=== PATIENT | male | born 1945 | race Caucasian/White ===

== ENCOUNTER → 2023-06-01 09:37 | Outpatient (REF) | payer MEDICARE, BC, SELFPAY ==
[2023-06-01 10:42] LABS: % Basophils 1.6 % (0-2); % Eosinophils 8.9 % (0-6); % Immature Granulocytes 0.1 % (0-0.5); % Lymphocytes 30.8 % (20.5-51.1); % Monocytes 11.8 % (1.7-9.3); % Neutrophils 46.8 % (42.2-75.2); Absolute Basophils 0.1 10^3/uL (0-0.2); Absolute Eosinophils 0.7 10^3/uL (0-0.7); Absolute Lymphocytes 2.5 10^3/uL (1.2-3.4); Absolute Neutrophils 3.8 10^3/uL (1.4-6.5); Hemoglobin 13.5 g/dL (13.0-18.0); Mean Corp Hgb Conc. 32.9 g/dL (33.0-37.0); Mean Corpuscular Hgb 30.5 pg (27.0-31.0); Mean Corpuscular Volume 92.8 fL (80.0-94.0); Mean Platelet Volume 9.7 fL (7.4-10.4); Nucleated Red Blood Cells % 0 % (-); Platelet Count 436 10^3/uL (130-400); Red Blood Cell Count 4.42 10^6/uL (4.70-6.10); White Blood Cell Count 8.1 10^3/uL (4.8-10.8)
[2023-06-01 10:43] LABS: Urine Albumin Negative (Neg - Trace); Urine Bilirubin Negative (Negative); Urine Character Clear (Clear); Urine Color Yellow; Urine Glucose Negative (Negative); Urine Ketone Negative (Negative); Urine Leukocyte Negative (Negative); Urine Nitrite Negative (Negative); Urine Occult Blood Negative (Negative); Urine Urobilinogen Negative (Neg - 1+)
[2023-06-01 11:10] LABS: ALT (SGPT) 17 U/L (0-50); AST (SGOT) 26 U/L (17-59); Alkaline Phosphatase 105 U/L (38-126); Blood Urea Nitrogen 19 mg/dl (9-20); Calcium 9.3 mg/dl (8.4-10.2); Carbon Dioxide 27 mmol/L (22-30); Chloride 107 mmol/L (98-107); Glucose 91 mg/dl (70-99); HDL Cholesterol 68 mg/dl; LDL Cholesterol, Calculated 126 mg/dl; Potassium 5.7 mmol/L (3.5-5.1); Sodium 138 mmol/L (135-145); Total Bilirubin 0.7 mg/dl (0.2-1.3); Total Cholesterol 214 mg/dl (50-199); Total Protein 7.1 g/dl (6.3-8.2); Triglyceride 100 mg/dl (10-149); Very Low Density Lipoprotein 20 mg/dl (0-30); eGFR 57.29
[2023-06-01 11:44] LABS: PSA, Total - Screen 1.48 ng/ml (0.0-4.0); TSH Reflex To Free T4 1.81 uIU/ml (0.47-4.68)
== END ==
LOC: REG 09:37
PROVIDERS: ATTENDING PHYSICIAN Physician Assistant
DX: I73.9 Peripheral vascular disease, unspecified (principal); E83.51 Hypocalcemia; I25.2 Old myocardial infarction; Z87.891 Personal history of nicotine dependence; Z12.5 Encounter for screening for malignant neoplasm of prostate
CPT/HCPCS: 36415; 80053; 80061; 81003; 84443; 85025; G0103

== ENCOUNTER → 2023-06-15 11:02 | Outpatient (REF) | payer MEDICARE, BC, SELFPAY | LOC: HWRAD 11:02 | PROVIDERS: ATTENDING PHYSICIAN Physician Assistant | DX: Z87.891 Personal history of nicotine dependence (principal) | CPT/HCPCS: 71271 ==

== ENCOUNTER → 2023-10-19 14:53 | Outpatient (REF) | payer MEDICARE, BC, SELFPAY ==
[2023-10-20 19:22] LABS: Urine Albumin Negative (Neg - Trace); Urine Bilirubin Negative (Negative); Urine Character Clear (Clear); Urine Color Yellow; Urine Glucose Negative (Negative); Urine Ketone Negative (Negative); Urine Leukocyte Negative (Negative); Urine Nitrite Negative (Negative); Urine Occult Blood Negative (Negative); Urine Specific Gravity 1.015 (<1.030); Urine Urobilinogen Negative (Neg - 1+)
== END ==
LOC: CLAB 14:53
PROVIDERS: ATTENDING PHYSICIAN Specialist
DX: C67.9 Malignant neoplasm of bladder, unspecified (principal)
CPT/HCPCS: 81003

== ENCOUNTER 2023-12-09 06:18 | Day surgery (SDC) | payer MEDICARE, BC, SELFPAY ==
--- NOTE | 2023-12-07 10:20 | PTCARENOTE ---
Abn K+ 5.7, Syeda at Dr. Orozco office notified.
--- NOTE | 2023-12-07 14:27 | PTCARENOTE ---
[facility] labs, Dr. Owens with Anesthesia notified, no further actions requested.
[2023-12-09] VITALS (13 sets, daily range): BP systolic 121–140; BP diastolic 73–85; BMI 24.0
[2023-12-09] MEDS: CYSVIEW KIT 100 MG INTRAVES (08:09)
[2023-12-09] MEDS: NORMOSOL-R 1000 IV (08:18)
[2023-12-09] MEDS: TYLENOL 1000 MG PO (08:35)
[2023-12-09] MEDS: SYRINGE NON-PUMP 50 ML IRRIG ×2 (10:27→10:28)
[2023-12-09] MEDS: SYRINGE NON-PUMP 50 MG IRRIG ×2 (10:27→10:28)
[2023-12-09] MEDS: VALIUM INJECTION 2.5 MG IV (10:43)
== END 2023-12-09 12:59 | disposition home or self-care (01) ==
LOC: SDS 06:18
PROVIDERS: ATTENDING PHYSICIAN Specialist; FAMILY PHYSICIAN Physician Assistant
DX: C67.8 Malignant neoplasm of overlapping sites of bladder (principal); Z85.51 Personal history of malignant neoplasm of bladder
CPT/HCPCS: 52332; 51720; 52224; 88307; 74420; 76000; A4300; A9589; C1758; C2617; J0153; J9201

== ENCOUNTER 2023-12-14 02:06 | Inpatient (IN) | payer MEDICARE, BC, SELFPAY ==
[2023-12-13 19:05] VITALS: BP 142/80
[2023-12-13 21:00] VITALS: BP 148/90
[2023-12-13] MEDS: ELIQUIS 5 MG PO (21:18)
[2023-12-13 21:26] VITALS: BMI 23.4
--- NOTE | 2023-12-13 21:35 | ED.GENMED ---
History of Present Illness
<Nayan Mazariegos PA-C - Last Filed: 12/14/23 12:10>
General
Chief Complaint: Extremity Pain (non-traumatic)
Time Seen by Provider: 12/13/23 21:06
History of Present Illness
History of Present Illness:
78-year-old male with history of peripheral arterial disease status post femoral-femoral bypass presents to the emergency department for evaluation of t with right-thigh claudication symptoms that developed today. Symptoms are comparable to his
past arterial occlusion symptoms. He has been maintained on Eliquis for quite some time however due to the recent urologic surgery he was advised to hold Eliquis for a total of 7 days. Eliquis last dose of caution. Noticed today while ambulating
with any insignificant right thigh discomfort. He has very minimal to no pain at rest.
Past History
<Nayan Mazariegos PA-C - Last Filed: 12/14/23 12:10>
Past History
ED Past Medical History: None
ED Past Surgical History: Tonsilectomy and Other (Hernia repair)
Social History
Tobacco: Smoker
Drug: None
Personal: Single
Employment: Retired
Family History
Family History: Other (No significant)
Review of Systems
<Nayan Mazariegos PA-C - Last Filed: 12/14/23 12:10>
Review of Systems
Allergies reviewed?: Yes
All Other Systems: ROS reviewed and negative except as documented in HPI and ROS
Phy Exam
<Nayan Mazariegos PA-C - Last Filed: 12/14/23 12:10>
Physical Exam
Physical Exam:
GEN: Well appearing, NAD, WDWN
HEENT: Oral mucosa moist, no scleral icterus
Cardiac: Regular rate
Lung: No respiratory distress, no tachypnea
MSK: No gross deformity or injuries. No right lower extremity edema. Right popliteal, DP, and PT pulses are strong by Doppler
Skin: Good color, no pallor or jaundice, no rashes
Neuro: AO x3, moves all extremities freely
Psych: Calm, cooperative
Course
<Nayan Mazariegos PA-C - Last Filed: 12/14/23 12:10>
Orders/Labs/Results
Orders:
Orders
12/13/23 21:13
Apixaban [Eliquis] 5 mg PO NOW STA
12/13/23 21:34
CT Abd Aorta Angio W/ Run Off Urgent
Comment:
Reason For Exam: RLE claudication/rest pain
12/13/23 22:27
Complete Blood Count/No Diff Urgent
Comprehensive Metabolic Panel Urgent
12/14/23 01:19
Vascular Surgery Consult Urgent
Consulting Provider: Daniel Baker III
Was physician already notified: Yes
12/14/23 01:52
Admit/Transfer Patient As Directed
Co-Sign Provider:
Level of Care: Inpatient admission
Assign to:: Telemetry
Physician / Group: francesca
Diagnosis: acute right leg stent and bypass occlusion
Reason for Telemetry: Arrhythmia
Other Reason for Telemetry: HX SVT
Date to Stop Telemetry: 12/17/23
Time to Stop Telemetry: 11:00
Reason for Hospitalization: right leg stent and bypass occlusion
Expected length of stay greater than two midnights?: Yes
ELOS- Estimated Length of Stay in days: 3
I certify the patient meets the requirements for IP care: Yes
12/14/23 01:53
Code Status As Directed
Resuscitation Status: Full Code
12/14/23 03:12
Acetaminophen [Tylenol] 650 mg PO Q4HPRN PRN
Bisacodyl [Dulcolax] 10 mg RECTAL [id number] PRN
Docusate W/Senna [Senokot-S] 1 tablet PO BIDPRN PRN
Polyethylene Glycol Powder [Miralax] 17 grams PO DAILYPRN PRN
12/14/23 03:12
Activity As Directed
Activity Level: With Assistance
Vital Signs As Directed
Frequency: Per unit guidelines
12/14/23 06:55
Basic Metabolic Panel IN AM
Complete Blood Count/No Diff IN AM
Prothrombin Time IN AM
12/14/23 08:00
Apixaban [Eliquis] 5 mg PO BID
12/17/23 11:00
DC Protocol for Telemetry ONCE
Abnormal Lab Results
12/13/23
22:27
RBC 3.91 L 10^6/uL
(4.70-6.10)
Hgb 12.1 L g/dL
(13.0-18.0)
Hct 33.9 L %
(39.0-52.0)
Sodium 127 L mmol/L
(135-145)
Chloride 97 L mmol/L
(98-107)
BUN 26 H mg/dl
(9-20)
Total Bilirubin 1.5 H mg/dl
(0.2-1.3)
12/13/23 22:27
12/13/23 22:27
Vital Signs
Initial and Last Documented VS:
Initial Vital Signs
Temp Pulse Resp BP Pulse Ox
97.8 F 88 24 142/80 96
12/13/23 19:05 12/13/23 19:05 12/13/23 19:05 12/13/23 19:05 12/13/23 19:05
Last Documented Vital Signs
Temp Pulse Resp BP Pulse Ox
98.2 F 103 14 126/81 97
12/14/23 11:20 12/14/23 11:20 12/14/23 11:20 12/14/23 11:20 12/14/23 11:20
<Lloyd Gandhi MD - Last Filed: 12/14/23 02:49>
Orders/Labs/Results
Orders:
Orders
12/13/23 21:13
Apixaban [Eliquis] 5 mg PO NOW STA
12/13/23 21:34
CT Abd Aorta Angio W/ Run Off Urgent
Comment:
Reason For Exam: RLE claudication/rest pain
12/13/23 22:27
Complete Blood Count/No Diff Urgent
Comprehensive Metabolic Panel Urgent
12/14/23 01:19
Vascular Surgery Consult Urgent
Consulting Provider: Daniel Baker III
Was physician already notified: Yes
12/14/23 01:52
Admit/Transfer Patient As Directed
Co-Sign Provider:
Level of Care: Inpatient admission
Assign to:: Telemetry
Physician / Group: beny
Diagnosis: acute right leg stent and bypass occlusion
Reason for Telemetry: Arrhythmia
Other Reason for Telemetry: HX SVT
Date to Stop Telemetry: 12/17/23
Time to Stop Telemetry: 11:00
Reason for Hospitalization: right leg stent and bypass occlusion
Expected length of stay greater than two midnights?: Yes
ELOS- Estimated Length of Stay in days: 3
I certify the patient meets the requirements for IP care: Yes
12/14/23 01:53
Code Status As Directed
Resuscitation Status: Full Code
12/14/23 03:12
Acetaminophen [Tylenol] 650 mg PO Q4HPRN PRN
Bisacodyl [Dulcolax] 10 mg RECTAL [id number] PRN
Docusate W/Senna [Senokot-S] 1 tablet PO BIDPRN PRN
Polyethylene Glycol Powder [Miralax] 17 grams PO DAILYPRN PRN
12/14/23 03:12
Activity As Directed
Activity Level: With Assistance
Vital Signs As Directed
Frequency: Per unit guidelines
12/14/23 06:55
Basic Metabolic Panel IN AM
Complete Blood Count/No Diff IN AM
Prothrombin Time IN AM
12/14/23 08:00
Apixaban [Eliquis] 5 mg PO BID
12/17/23 11:00
DC Protocol for Telemetry ONCE
Abnormal Lab Results
12/13/23
22:27
RBC 3.91 L 10^6/uL
(4.70-6.10)
Hgb 12.1 L g/dL
(13.0-18.0)
Hct 33.9 L %
(39.0-52.0)
Sodium 127 L mmol/L
(135-145)
Chloride 97 L mmol/L
(98-107)
BUN 26 H mg/dl
(9-20)
Total Bilirubin 1.5 H mg/dl
(0.2-1.3)
12/13/23 22:27
12/13/23 22:27
Vital Signs
Initial and Last Documented VS:
Initial Vital Signs
Temp Pulse Resp BP Pulse Ox
97.8 F 88 24 142/80 96
12/13/23 19:05 12/13/23 19:05 12/13/23 19:05 12/13/23 19:05 12/13/23 19:05
Last Documented Vital Signs
Temp Pulse Resp BP Pulse Ox
98.2 F 103 14 126/81 97
12/14/23 11:20 12/14/23 11:20 12/14/23 11:20 12/14/23 11:20 12/14/23 11:20
<Nayan Mazariegos PA-C - Last Filed: 12/14/23 12:10>
MDM/Problems Addressed
MDM/Problems Addressed:
Concern for limb ischemia in the setting of fem-fem bypass and prolonged period of withheld OAC due to urologic surgery. Will sign out to attending Dr Gandhi pending CTA runoff. Vascular is aware of the pt's presentation
<Nayan Mazariegos PA-C - Last Filed: 12/14/23 12:10>
*Critical Care Note
Total Time (30-74mins, 75-104mins- exclusive of procedures): Not Applicable
ED Attending Note
<Nayan Mazariegos PA-C - Last Filed: 12/14/23 12:10>
-
Portions of this chart may have been created with voice recognition software.� Occasional wrong word or��sound alike� substitutions may have occurred due to the inherent limitations of voice recognition software.
<Lloyd Gandhi MD - Last Filed: 12/14/23 02:49>
ED Attending Note
Patient seen and examined by attending physician: Yes
ED Attending Note:
I have seen and evaluated the patient with a [id number] encounter. I have spoken to the advance practicer provider and involved in the medical history, the physical exam, medical decision making.
Evaluation and management service: agree unless noted differently below.
Results interpretation: agree unless noted differently below.
Focused HPI: 78-year-old male with history of A-fib, DVT, PVD status post bypass who presents to the emergency room with paresthesias and pain in the right leg. Patient notably had cystoscopy on and bladder mass resection. He was told to
hold Eliquis starting last Wednesday (1 week ago) and to resume it 3 days after the surgery (today). Total time off Eliquis 1 week. He says that over the weekend he noticed that he was having some paresthesias in the right leg and then began to have
some burning thigh pain with exertion yesterday. Similar symptoms he has had from claudication in the past. Resumed his Eliquis but symptoms persisted and so he came to the ER to be evaluated.
Physical exam: Awake alert not in distress. Vital signs are normal. Both legs are warm to the touch and he has good capillary refill distally in both legs. He has a strong palpable DP and PT pulse left lower extremity. Right lower extremity no
pulse by palpation but present by Doppler DP and PT. He has no edema in the lower extremities.
Medical Decision Makin-year-old male presents with claudication symptoms in the right leg in the setting of recent withholding of NOAC due to a bladder surgery. Vitals normal. Exam as above. PA discussed with vascular surgery will plan to
send for a CT angio to evaluate for occlusion of bypass.
CTA shows occlusion of bypass graft as well as prior stent. There is reconstitution of flow distally. Discussed with vascular surgery will plan to admit to hospitalist service they will evaluate patient in the morning. He was given his nighttime
dose of Eliquis here, this is sufficient for now and continue Eliquis per vascular surgery. Case discussed with hospitalist.
Discharge Plan
Departure
Patient Disposition: Admit
Date of Disposition: 12/14/23
Time of Disposition: 01:19
Admit to doctor: Francesca
Presentation/result/management discussed w/ accepting MD/DO: Hospitalist
Discharge Problem:
Occlusion of bypass graft
Interventions
Interventions:
*Risk Screen - Suicide Last Done: 12/14/23 03:30
*General Assessment Last Done: 12/13/23 21:11
*Neglect/Abuse Screening Last Done: 12/13/23 19:05
ED- Fall Risk Assessment Last Done: 12/13/23 21:19
*ED COVID-19 Vaccine History Last Done: 12/14/23 03:30
*Nursing Disposition Last Done: 12/14/23 03:01
ED-Skin Assessment Last Done: 12/13/23 21:19
ED-Peripheral Vascular Assessment Last Done: 12/13/23 21:19
ED-Musculoskeletal Assessment Last Done: 12/13/23 21:19
Discharge Date and Time
Discharge Date/Time: 12/14/23 03:01
[2023-12-13 22:00] VITALS: BP 137/79
[2023-12-13 22:39] LABS: Hematocrit 33.9 % (39.0-52.0); Hemoglobin 12.1 g/dL (13.0-18.0); Mean Corp Hgb Conc. 35.7 g/dL (33.0-37.0); Mean Corpuscular Hgb 30.9 pg (27.0-31.0); Mean Corpuscular Volume 86.7 fL (80.0-94.0); Mean Platelet Volume 9.3 fL (7.4-10.4); Platelet Count 265 10^3/uL (130-400); Red Blood Cell Count 3.91 10^6/uL (4.70-6.10); Red Cell Dist. Width 13.6 % (11.5-14.5); White Blood Cell Count 7.8 10^3/uL (4.8-10.8)
[2023-12-13 23:12] LABS: ALT (SGPT) 21 U/L (0-50); AST (SGOT) 31 U/L (17-59); Alkaline Phosphatase 78 U/L (38-126); Blood Urea Nitrogen 26 mg/dl (9-20); Calcium 9.2 mg/dl (8.4-10.2); Carbon Dioxide 23 mmol/L (22-30); Chloride 97 mmol/L (98-107); Estimated Creatinine Clearance 59 ml/min; Glucose 97 mg/dl (70-99); Potassium 4.3 mmol/L (3.5-5.1); Sodium 127 mmol/L (135-145); Total Bilirubin 1.5 mg/dl (0.2-1.3); Total Protein 6.6 g/dl (6.3-8.2); eGFR > 60.00
[2023-12-14] VITALS (8 sets, daily range): BP systolic 107–149; BP diastolic 65–85; BMI 23.4
--- NOTE | 2023-12-14 01:42 | HPS.HSE ---
Addendum entered and electronically signed by Qamar Gannon MD 12/14/23 12:44:
Correction of typo
Urologist clear to resume Eliquis as of 12/13/23 but he started on <del>12/08/23</del> <del>night</del> 12/12/23 night
Original Note:
Family Physician
-
Family Physician: Patsy Kate
Chief Complaint
-
right thigh discomfort while walking
History of Present Illness
78M HX PAD, stented Rt Ext illiac artery, recently holding chr eliquis for 7 days recent urological procedure including Recent Left ureteral stent placement and transurethral resection of bladder tumor on trigone and resection of blue light
positive tissue on bladder dome for recurrent bladder carcinoma as of 12/08/23 seen at ER for evaluation of right-thigh claudication symptoms
- Reports while ambulating with any insignificant right thigh discomfort.
- very minimal to no pain at rest.
CTA POS for right leg stent and bypass occlusion
@ ER : resume onse dose of Eliquis 5 mg
Medical History
Past Medical History
Past Medical History: Reports Other
Additional Past Medical History:
Recurrent bladder carcinoma.
Peripheral vascular disease.
Coronary artery disease.
Supraventricular tachycardia.
Tobacco abuse.
Past Surgical History: Reports Other
Additional Past Surgical History:
Recent Left ureteral stent placement.
Transurethral resection of bladder tumor on trigone and resection of blue light positive tissue on bladder dome.
Multiple TURBTs.
Fibular fracture repair.
Right inguinal hernia repair.
Tonsillectomy.
Right femoral artery endarterectomy and popliteal artery and tibial thrombectomy.
Right lower extremity thrombectomy.
Left hip replacement.
Social History
Tobacco: Former Smoker
Family History
Family History: Other (PAD )
Allergies / Home Medications
Allergies reflects when Allergies were last updated in [facility].
Home Medications with original date entered in [facility]
Allergy/Medication List:
Allergies
Allergy/AdvReac Type Severity Reaction Status Date / Time
Sulfa (Sulfonamide Allergy Hives Verified 12/13/23 19:08
Antibiotics)
Home Medications
aspirin 81 mg tablet,delayed release 81 mg PO DAILY Blood clot prevention/tx ##0 08/18/21
apixaban 5 mg tablet (Eliquis) 5 mg PO BID #120 tabs 07/10/22
Medical Marijuana 1 dose inhalation HS 12/07/23
acetaminophen 325 mg capsule (Tylenol) 325 mg PO ONCE PRN pain 12/07/23
phenazopyridine 95 mg tablet 1 mg PO BID 12/07/23
tobramycin 0.3 %-dexamethasone 0.05 % eye drops,suspension (Tobradex ST) 1 drp ophthalmic (eye) Q6H 12/07/23
Review of Systems
-
Constitutional: Reports No Symptoms
EENT: Reports No Symptoms
Respiratory: Reports No Symptoms
Cardiac: Reports No Symptoms
Abdomen/GI: Reports No Symptoms
: Reports No Symptoms
Musculoskeletal: Reports See HPI
Skin: Reports No Symptoms
Neurological: Reports No Symptoms
Endocrine: Reports No Symptoms
Hematologic/Lymphatic: Reports No Symptoms
Psych: Reports No Symptoms
Physical Exam
Vital Signs
Vital Signs
Temp Pulse Resp BP Pulse Ox
97.8 F 87 16 129/74 98
12/13/23 19:05 12/14/23 00:32 12/14/23 00:32 12/14/23 00:32 12/14/23 00:32
Physical Exam
General: Well Developed, Well Nourished and No Apparent Distress
HEENT: NormoCephalic, Moist mucous membranes and Atraumatic
Respiratory: Clear
Cardiac: S1/S2 and Regular Rhythm; No Murmur or Rub
GI: Soft, Non Tender, Non Distended and Normal Bowel Sounds; No Organomegaly
Rectal: Deferred by Provider
Musculoskeletal: Other (Right popliteal, DP, and PT pulses are strong by Doppler)
Skin: No Rash
Neuro: Nonfocal/grossly intact
Laboratory Results
-
12/13/23 22:27
12/13/23 22:
Laboratory Results
Total Bilirubin 1.5 mg/dl (0.2-1.3) H 12/13/23 22:
AST 31 U/L (17-59) 12/13/23:
ALT 21 U/L (0-50) 12/13/23 22:
Alkaline Phosphatase 78 U/L (38-126) 12/13/23 22:
Data Reviewed
-
CT Scan: Report Reviewed by me
Lab Data: Labs Reviewed by me
Old Records: Reviewed
Impression/Plan
-
Right leg stent and bypass occlusion while holding Eliquis
HX PAD, Right femoral artery endarterectomy and popliteal artery and tibial thrombectomy.
- resume Eliquis per vascular
- Vascular consulted
POD 5 Left ureteral stent placement and Transurethral resection of bladder tumor on trigone and resection of blue light positive tissue on bladder dome fo recurrent bladder tumor
Multiple TURBTs.
- Observe new onset of hematuria in response to Eliquis
- Urologist clear to resume Eliquis as of 12/13/23 but he started on 12/08/23 night
HX CAD
HX SVT
Pending Rx reconciliation
DVT: Eliquis
Full code
IP TLM
--- NOTE | 2023-12-14 03:20 | PTCARENOTE ---
Pt arrived from ED via stretcher and ambulated to bed. Pt is AAOx3, VSS, w/o complaints of pain. Pt has a Baker that is intact. Pt is resting comfortably w/ call dunn within reach.
[2023-12-14] MEDS: MACROBID 100 MG PO ×2 (08:35→20:43)
[2023-12-14] MEDS: ELIQUIS 5 MG PO ×2 (08:36→20:43)
[2023-12-14] MEDS: XALATAN OPHTHALMIC SOLUTION 1 DROP OPHTH (08:37)
[2023-12-14] MEDS: TOBREX 0.3% EYE DROPS 1 DROP OPHTH ×2 (08:37→20:43)
[2023-12-14 08:43] LABS: INR 1.14; PT 14.4 Sec (11.4-14.6)
[2023-12-14 08:52] LABS: Hematocrit 36.2 % (39.0-52.0); Hemoglobin 12.7 g/dL (13.0-18.0); Mean Corp Hgb Conc. 35.1 g/dL (33.0-37.0); Mean Corpuscular Hgb 31.7 pg (27.0-31.0); Mean Corpuscular Volume 90.3 fL (80.0-94.0); Mean Platelet Volume 9.8 fL (7.4-10.4); Platelet Count 273 10^3/uL (130-400); Red Blood Cell Count 4.01 10^6/uL (4.70-6.10); Red Cell Dist. Width 13.5 % (11.5-14.5); White Blood Cell Count 6.1 10^3/uL (4.8-10.8)
[2023-12-14 09:04] LABS: Blood Urea Nitrogen 23 mg/dl (9-20); Calcium 8.9 mg/dl (8.4-10.2); Carbon Dioxide 24 mmol/L (22-30); Chloride 101 mmol/L (98-107); Estimated Creatinine Clearance 59 ml/min; Glucose 84 mg/dl (70-99); Potassium 4.7 mmol/L (3.5-5.1); Sodium 132 mmol/L (135-145); eGFR > 60.00
--- NOTE | 2023-12-14 09:58 | W.PN.UPDATE ---
Update Note
Progress Note Update
pt well known to me
recurrent bladder ca
underwent large TURBT on - held eliquis 48hrs prior and ask him to hold until wednesday with planned bolaños removal today
had had some intermittent hematuria over the weekend
developed some claudication on wednesday- this was a typical sx of previous graft occlusion and restarted his eliquis
took wednesday and wednesday and this am
presented to ER with increasing clausidcation (no limb ischemia)
ct c/w occlusion
urine clear- bladder appears nl with left stent in position
reviewed with pt
path still pending
keep bolaños until dispo from vasc surgery who i have reached out to
will follow
--- NOTE | 2023-12-14 10:59 | W.PN.UPDATE ---
Update Note
Progress Note Update
Seen and examined independent of overnight physician. States of right leg pain with exertion. Denies pain with rest.
Ct ANGIO
1. Femoral to femoral bypass graft is occluded, new compared to prior study dated 01/04/2023. Right external iliac artery is occluded along its length, with reconstitution of the right common femoral artery. Multiple additional stenoses involving the
right lower extremity, as detailed above. Infrapopliteal disease on the right side.
2. Mild peripheral vascular disease within the left lower extremity as detailed above.
3. Multifocal plaque within the abdominal aorta. 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 Mild aneurysmal dilation of the right proximal common iliac artery and the left distal common iliac artery. Mild
aneurysmal dilation of the right common femoral artery, which may be related to anastomotic flaring of the femoral to femoral bypass graft.
4. Small fluid collection within the anterior soft tissues of the right lower extremity, unchanged compared to prior CTA, likely representing a small seroma.
General: Well Developed, Well Nourished and No Apparent Distress
HEENT: NormoCephalic, Moist mucous membranes and Atraumatic
Respiratory: Clear
Cardiac: S1/S2 and Regular Rhythm; No Murmur or Rub
GI: Soft, Non Tender, Non Distended and Normal Bowel Sounds; No Organomegaly
Rectal: Deferred by Provider
Musculoskeletal: Other (Right popliteal, DP, and PT pulses are strong by Doppler)
Skin: No Rash
Neuro: Nonfocal/grossly intact
Right leg stent and bypass occlusion while holding Eliquis
HX PAD, Right femoral artery endarterectomy and popliteal artery and tibial thrombectomy.
- resume Eliquis per vascular
- CTA as above
- Vascular consulted. NPO in case for thrombectomy. IVF in the interim
POD 5 Left ureteral stent placement and Transurethral resection of bladder tumor on trigone and resection of blue light positive tissue on bladder dome fo recurrent bladder tumor
Multiple TURBTs.
- Observe new onset of hematuria in response to Eliquis
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
- Dr. Orozco following.
Hx of glaucaoma/cataracts
-eye drops ordered
'
Mild hyponatremia
-trend bmp.
HX CAD
HX SVT
DVT: Eliquis
[2023-12-14] MEDS: FLUSH (NSS) 1 FLUSH IV (12:05)
[2023-12-14] MEDS: LR 1000 IV ×2 (12:05→22:40)
--- NOTE | 2023-12-14 12:38 | CON.VAS ---
Consultation
Consultation Request
Performing Provider: Olivia
Reason for Consultation: Right thigh pain
Medical History
-
Chief Complaint: R thigh pain
History of Present Illness:
78-year-old male with extensive vascular surgery history
Prior right lower extremity interventions for acute limb ischemia in 2018 and 2020 including R CFAE and left to right fem-fem bypass, fasciotomies
Thrombectomy of the fem-fem in 06/2022 that thrombosed while holding anticoag for colonoscopy
Now has acutely thrombosed the fem-fem as well as the iliamna right SUPERVISOR HISTOLOGY while holding anticoag for bladder procedure
Presented with RLE symptoms - right thigh claudication
No rest pain currently
CTA reviewed personally. Fem-fem occluded. Right [employer]OR [employer] occluded, aneurysmal at ~24 cm.
The distal common femoral at the femoral bifurcation does reconstitute. The SFA/profunda/popliteal arteries are patent. Tibial runoff is identified through the anterior tibial and posterior tibial arteries.
On physical exam he is well-appearing and in no acute distress
Nonlabored breathing
Doppler signals are identified at the DP and PT in the right leg
Past Medical History
Past Medical History: Other (Recurrent bladder carcinoma, Peripheral vascular disease, Coronary artery disease, Supraventricular tachycardia, Tobacco abuse.)
Past Surgical History: Other (Recent Left ureteral stent placement, Transurethral resection of bladder tumor on trigone and resection of blue light positive tissue on bladder dome, Multiple TURBTs, Fibular fracture repair, Right inguinal hernia
repair, Tonsillectomy, Right femoral artery endarterectomy and popliteal artery and t)
Social History
Tobacco: Former Smoker
Living: With Family
Family History
Family History: Reviewed & Not Pertinent
Allergies / Home Medications
Allergy/AdvReac Type Severity Reaction Status Date / Time
Sulfa (Sulfonamide Allergy Hives Verified 12/13/23 19:08
Antibiotics)
�Medication �Instructions �Recorded �Confirmed �Type
aspirin 81 mg tablet,delayed 81 mg PO DAILY Blood clot 08/18/21 12/14/23 History
release prevention/tx ##0
apixaban 5 mg tablet (Eliquis) 5 mg PO BID #120 tabs 07/10/22 12/14/23 Rx
Medical Marijuana 1 dose inhalation HS Neurological 12/07/23 12/14/23 History
Condition
acetaminophen 325 mg capsule 325 mg PO ONCE PRN pain 12/07/23 12/14/23 History
(Tylenol)
phenazopyridine 95 mg tablet 1 mg PO BID urinary pain 12/07/23 12/14/23 History
tobramycin 0.3 %-dexamethasone 1 drp ophthalmic (eye) Q6H Eye 12/07/23 12/14/23 History
0.05 % eye drops,suspension Condition
(Tobradex ST)
Review of Systems
-
History Source: Patient
All other systems: Negative unless noted
Physical Exam
Vital Signs
Temp Pulse Resp BP Pulse Ox
97.7 F 83 18 140/81 96
12/15/23 11:14 12/15/23 11:14 12/15/23 11:14 12/15/23 11:14 12/15/23 11:14
Lab Results
12/15/23 08:26
12/15/23 08:26
Physical Exam
General: No Apparent Distress
HEENT: Normocephalic and Atraumatic
Respiratory: Non Labored Respirations
Cardiac: Negative JVD
Breast: Deferred by me
GI: Soft and Non Tender
Musculoskeletal: No Clubbing and No Cyanosis
Skin: Warm
Neuro: Awake, Alert and Oriented
Psych: Calm
Pulses: Right Dorsalis Pedis: Doppler and Right Posterior Tibial: Doppler
Assessment / Plan
-
I had a long discussion with Mr. Aden. I discussed potential treatment options and reviewed his vascular surgery course to date, highlighting the challenges he has had with cessation of anticoagulation. 1 option is to continue systemic
anticoagulation and avoid surgical intervention given that he does have reconstituted runoff of his lower extremity. The advantage with this approach would be to avoid additional surgical intervention and the associated complications including but
not limited to bleeding, NH, distal embolization, wound healing complications, infection, recurrent limb ischemia, limb loss and the need for additional surgery. He is currently only claudicating and has no rest pain. Another option would be to
redo the fem-fem bypass using the superficial femoral arteries bilaterally. The advantage of this approach would be to perform the bypass in [place] and avoid potential reoperative groin surgery on both sides. The downside of another
fem-fem bypass and the potential for additional thrombotic complications as well as the potential complications listed above was discussed with him in detail. Thrombectomy of the existing fem-fem bypass along with thrombectomy of the right [employer] is
another options but would require reoperative right groin surgery to effectively remove the thrombus due to the aneurysmal nature of the right common femoral artery and the amount of associated thrombus present. I would like to avoid this approach
and explained that to him.
He would like some additional time to consider his options. For the time being continue anticoagulation and we will follow along. Please call with any clinical changes or concerns.
Data Reviewed
-
CT Scan: Discussed with Patient
Labs: Labs Reviewed by me
--- NOTE | 2023-12-14 13:26 | W.PN.UPDATE ---
Update Note
Progress Note Update
78-year-old male with extensive vascular surgery history
Prior right lower extremity interventions for acute limb ischemia in 2019 and 2020 including R CFAE and left to right fem-fem bypass, fasciotomies
Thrombectomy of the fem-fem in 06/2022 that thrombosed while holding anticoag for colonoscopy
Now has acutely thrombosed the fem-fem as well as the [place] right SALES REP while holding anticoag for bladder procedure
Presented with RLE symptoms - right thigh claudication
No rest pain currently
CTA reviewed personally. Fem-fem occluded. 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
The distal common femoral at the femoral bifurcation does reconstitute. The SFA/profunda/popliteal arteries are patent. Tibial runoff is identified through the anterior tibial and posterior tibial arteries.
On physical exam he is well-appearing and in no acute distress
Nonlabored breathing
Doppler signals are identified at the DP and PT in the right leg
I had a long discussion with Mr. Aden. I discussed potential treatment options and reviewed his vascular surgery course to date, highlighting the challenges he has had with cessation of anticoagulation. 1 option is to continue systemic
anticoagulation and avoid surgical intervention given that he does have reconstituted runoff of his lower extremity. The advantage with this approach would be to avoid additional surgical intervention and the associated complications including but
not limited to bleeding, WA, distal embolization, wound healing complications, infection, recurrent limb ischemia, limb loss and the need for additional surgery. He is currently only claudicating and has no rest pain. Another option would be to
redo the fem-fem bypass using the superficial femoral arteries bilaterally. The advantage of this approach would be to perform the bypass in [place] and avoid potential reoperative groin surgery on both sides. The downside of another
fem-fem bypass and the potential for additional thrombotic complications as well as the potential complications listed above was discussed with him in detail. Thrombectomy of the existing fem-fem bypass along with thrombectomy of the right SALES REP is
another options but would require reoperative right groin surgery to effectively remove the thrombus due to the aneurysmal nature of the right common femoral artery and the amount of associated thrombus present. I would like to avoid this approach
and explained that to him.
He would like some additional time to consider his options. For the time being continue anticoagulation and we will follow along. Please call with any clinical changes or concerns.
Daniel Baker III, MD
[facility]
[phone] (cell)
--- NOTE | 2023-12-14 16:13 | PTCARENOTE ---
Pt AAO x3, GLOVER well, OOB ambulator yin room/clark, jovita well, no c/o weakness/dizziness. VSS. Telemetry:NSR with PVC's. On room air- pulseox 96%, no SOB noted. Abd soft, rounded, jovita PO well. Baker P/I mod amts clear jose juan urine, no hematuria
noted. IV RL @ 80 ml/hr infusing via Rt AC site without sx of infiltration. Resting in bed at present, no c/o. Will continue to monitor.
--- NOTE | 2023-12-14 17:16 | CM ---
Alert awake oriented patient who lives with SO Iwona who lives in a 2 story home with 1 step to enter and 12 steps to bed and bathroom. He is independent in driving and in all activities of daily living.He was offered VN he declined need.He has a
Baker.
VN hx for wd vac / No SNF history
Pharmacy [facility]
PCP DR Kate
PLAN Unsure on dc plan
--- NOTE | 2023-12-14 17:45 | PTCARENOTE ---
Called to room by pt c/o 'felt a little dizzy' after drinking 2 cups of coffee with dinner. Noted run of SVT to 140's on telemetry; monitor currently showing NSR with PVC's; HR 85. Pt states he 'feels much better now'. Will continue to monitor.
Dr. Jarvis notified.
--- NOTE | 2023-12-15 03:30 | DOWNTIME ---
There was a [employer] Downtime on 12/15/2023 from 0100 to 12/15/2023 at 0252. Downtime documentation of patient's care, including medication administrations, has been reconciled in the electronic record per guidelines. Refer to the
patient's paper chart under the miscellaneous tab to see printed paper medication records and downtime forms.
[2023-12-15 03:45] VITALS: BP 111/65
[2023-12-15 07:35] VITALS: BP 112/73
--- NOTE | 2023-12-15 08:09 | W.PN.UPDATE ---
Update Note
Progress Note Update
pt stable overnight
urine clear
reviewed with vasc surgery yesterday- plan for med management of pvd at this point
bladder path shows high grade noninvasive dz
reviewed with pt
after bolaños removal if urinating cleared for discharge
pt should call my office abhi to schedule stent removal and discussion of options going forward
[2023-12-15] MEDS: TOBREX 0.3% EYE DROPS 1 DROP OPHTH (09:07)
[2023-12-15] MEDS: ELIQUIS 5 MG PO (09:07)
[2023-12-15] MEDS: MACROBID 100 MG PO (09:07)
[2023-12-15] MEDS: XALATAN OPHTHALMIC SOLUTION 1 DROP OPHTH (09:08)
[2023-12-15 09:54] LABS: % Basophils 1.2 % (0-2); % Eosinophils 5.5 % (0-6); % Immature Granulocytes 0.3 % (0-0.5); % Monocytes 3.3 % (1.7-9.3); % Neutrophils 58.7 % (42.2-75.2); Absolute Basophils 0.1 10^3/uL (0-0.2); Absolute Eosinophils 0.3 10^3/uL (0-0.7); Absolute Lymphocytes 1.8 10^3/uL (1.2-3.4); Absolute Monocytes 0.2 10^3/uL (0.1-0.6); Absolute Neutrophils 3.4 10^3/uL (1.4-6.5); Hematocrit 36.7 % (39.0-52.0); Hemoglobin 12.7 g/dL (13.0-18.0); Mean Corp Hgb Conc. 34.6 g/dL (33.0-37.0); Mean Corpuscular Hgb 31.5 pg (27.0-31.0); Mean Corpuscular Volume 91.1 fL (80.0-94.0); Mean Platelet Volume 9.7 fL (7.4-10.4); Nucleated Red Blood Cells % 0 % (-); Platelet Count 249 10^3/uL (130-400); Red Blood Cell Count 4.03 10^6/uL (4.70-6.10); Red Cell Dist. Width 13.4 % (11.5-14.5); White Blood Cell Count 5.8 10^3/uL (4.8-10.8)
[2023-12-15 10:23] LABS: Blood Urea Nitrogen 23 mg/dl (9-20); Calcium 8.8 mg/dl (8.4-10.2); Carbon Dioxide 26 mmol/L (22-30); Chloride 102 mmol/L (98-107); Estimated Creatinine Clearance 59 ml/min; Glucose 86 mg/dl (70-99); Potassium 4.5 mmol/L (3.5-5.1); Sodium 135 mmol/L (135-145); eGFR > 60.00
[2023-12-15 11:14] VITALS: BP 140/81
--- NOTE | 2023-12-15 11:20 | CM ---
Patient seen bedside.
Baker cath discontinued this am.
Per patient able to void in urinal.
IMM reviewed.
Plan:home no needs anticipated.
sister will transport.
--- NOTE | 2023-12-15 11:29 | PTOTSP ---
Received order for PT and reviewed chart. Attempted to see pt for initial evaluation but pt not in room. RN in room and stated pt is ambulating independently in hallway without an assistive device and does not need PT services. Observed pt
ambulating multiple laps in hallway without an assistive device. PT will sign off.
--- NOTE | 2023-12-15 11:44 | PTCARENOTE ---
Patient voided 350ml @ 11:00 post bolaños removal.
--- NOTE | 2023-12-15 14:00 | W.PN.HOSP.TC ---
Today's Communication/Plan
-
Discharged with outpatient vascular surgery and urology follow-up
Assessment / Plan
Assessment / Plan
#Right leg stent and bypass occlusion -- while holding Eliquis for urologic procedure
#PAD s/p right femoral endarterectomy, popliteal artery and tibial thrombectomy
-Presented with symptoms of worsening claudication, no signs of critical limb ischemia
-Resumed back on Eliquis, no signs of worsening since admission, skin is warm and appropriately moist
-Patient spoke with vascular surgery and has elected for conservative management
-Will follow-up outpatient with vascular surgery for further treatment consideration
#POD 5 Left ureteral stent placement and Transurethral resection of bladder tumor on trigone and resection of blue light positive tissue on bladder dome fo recurrent bladder tumor
#S/P Multiple TURBTs.
-Urologist clear to resume Eliquis as of 12/13/23 but he started on 12/08/23 night
-Repeat bladder pathology shows high-grade noninvasive disease
HX CAD
HX SVT
DVT: Eliquis
Full code
Anticipated Discharge: Today
Subjective/Interval History
-
Date of Service: December 15, 2023
Seen and examined while sitting in the chair. No acute events.
Patient has decided to elect for conservative management concerning his occlusive PAD. Will follow-up as an outpatient with vascular surgery. As of now he denies any acute complaints states he is ready to go home.
Objective Data
-
Labs:
Laboratory Results
12/15/23
08:26
WBC 5.8
Hgb 12.7 L
Hct 36.7 L
Plt Count 249
Sodium 135
Potassium 4.5
Chloride 102
Carbon Dioxide 26
BUN 23 H
Creatinine 1.1
Glucose 86
Calcium 8.8
Vital Signs:
Vital Signs
Temp Pulse Resp BP Pulse Ox
97.7 F 83 18 140/81 96
12/15/23 11:14 12/15/23 11:14 12/15/23 11:14 12/15/23 11:14 12/15/23 11:14
I&O
12/14/23 12/15/23 12/16/23
06:59 06:59 06:59
Intake Total 240 / 240 1620 / 1620
Output Total 1025 / 1025 1750 / 1750
Balance -785 / -785 -130 / -130
Review of Systems
-
History Source: Patient
All other systems: Reviewed and negative
Physical Exam
-
General: Well Nourished, No Apparent Distress and Comfortable
HEENT: Normocephalic, Atraumatic and Moist Mucous Membranes
Respiratory: Clear to Auscultation and Non Labored Respirations
Cardiac: Regular Rhythm and S1/S2; Negative Murmur, Rub or Gallop
GI: Soft, Nontender, Nondistended and Normal Bowel Sounds
Musculoskeletal: No Clubbing, No Cyanosis and No Edema
Skin: Warm, Dry and Other (No signs of CLI to right lower extremity, surgical scar present over right medial calf); Negative Rash
Neuro: AO x 3, Nonfocal/Grossly Intact and Central Nerve's Intact
Data Reviewed
-
Labs: Labs Reviewed by me
--- NOTE | 2023-12-15 14:13 | W.DCSUMMARY ---
Discharge Summary
Discharge Data
Date of Admission: 12/14/23
Date of Discharge: 12/15/23
-
Pending Results: No
Hospital Course
Presented with worsening claudication after holding Eliquis for urological procedure stent placement. Found to have occlusion of previous arterial graft/stent, resumed on Eliquis without any worsening or new development of critical limb ischemia.
Was evaluated by vascular surgery who recommended conservative versus invasive management. The patient elected for conservative therapy, scheduled to follow-up in the office with vascular surgery following discharge for further consideration of
surgical procedures. Baker catheter removed following urological procedure. On dose of Macrobid prophylactically due to instrumentation. Discharge with order to complete 5-day course. Should follow-up with urologist in office within 2 to 3 days
to discuss removal of ureteral stent
Discharge Plan
-
Patient Disposition: Home (Routine Discharge)
Discharge Diagnosis/Procedures: PAD with graft/stent occlusion
Status post urologic procedure
Condition: Good
Diet: No restrictions
Activity: As tolerated
Driving Restrictions: As prior to admission
Bathing Restrictions: None
Blood Work: N/A
Others Tests: N/A
Specialty Instructions: Weigh Daily- Call MD for wt gain/loss 3 lbs overnight/5 lbs in 1 week
Activity Restrictions/Additional Instructions:
From a vascular surgery perspective you are not cleared to have eye surgery and you cannot come off anticoagulation for the eye procedure.
If you notice worsening pain to your foot, develop blue discoloration or paleness, please return to the emergency department
Instructions: Peripheral artery disease and claudication
Referrals:
Patsy Kate PA-C [Family Provider] -
Christian Webster MD [Active] - 01/07/24 9:00 am
Venkatesh Orozco Jr., MD [Active] -
Additional Discharge Medication Instructions: Take nitrofurantoin 100 mg twice daily for 4 more days after your discharge
Prescriptions:
New
nitrofurantoin monohyd/m-cryst 100 mg Capsule
100 mg PO BID 4 Days Qty: 8 0RF
Continued
aspirin 81 mg Tablet,Delayed Release (Dr/Ec)
81 mg PO DAILY Qty: 0
Eliquis 5 mg Tablet
5 mg PO BID Qty: 120 0RF
phenazopyridine 95 mg Tablet
1 mg PO BID
acetaminophen [Tylenol] 325 mg Capsule
325 mg PO ONCE PRN (Reason: pain)
Tobradex ST 0.3-0.05 % Drops,Suspension
1 drp OPHTHALMIC (EYE) Q6H
Medical Marijuana
1 dose inhalation HS
Discharge Orders:
Discharge Patient (As Directed); Ordered 12/15/23
Ordered By: Trever Gomez
Discharge Date and Time
Print Language: GERMAN
[2023-12-15 14:47] VITALS: BP 152/88
== END 2023-12-15 15:38 | disposition home or self-care (01) | DRG 315 ==
LOC: 4 EAST ACU 02:06
PROVIDERS: Hospitalist; Physician Assistant; ADMITTING PHYSICIAN Internal Medicine; ATTENDING PHYSICIAN Internal Medicine; CONSULT PHYSICIAN Surgery Vascular Surgery; EMERGENCY PHYSICIAN Emergency Medicine; FAMILY PHYSICIAN Physician Assistant
DX: T82.858A Stenosis of other vascular prosthetic devices, implants and grafts, initial encounter (principal); E87.1 Hypo-osmolality and hyponatremia; T82.856A Stenosis of peripheral vascular stent, initial encounter; C67.0 Malignant neoplasm of trigone of bladder; I73.9 Peripheral vascular disease, unspecified; Y71.2 Prosthetic and other implants, materials and accessory cardiovascular devices associated with adverse incidents; M79.651 Pain in right thigh; R20.2 Paresthesia of skin; I25.10 Atherosclerotic heart disease of native coronary artery without angina pectoris; I48.91 Unspecified atrial fibrillation; F17.200 Nicotine dependence, unspecified, uncomplicated; Z96.0 Presence of urogenital implants; Z96.642 Presence of left artificial hip joint; Z79.01 Long term (current) use of anticoagulants; Z79.82 Long term (current) use of aspirin; Z98.890 Other specified postprocedural states; Z79.899 Other long term (current) drug therapy; Z86.718 Personal history of other venous thrombosis and embolism; Z86.79 Personal history of other diseases of the circulatory system; Z87.19 Personal history of other diseases of the digestive system; Z88.2 Allergy status to sulfonamides
CPT/HCPCS: 75635; 80048; 80053; 85025; 85027; 85610; 99285; Q9967

== ENCOUNTER → 2024-03-29 17:07 | Outpatient (REF) | payer MEDICARE, BC, SELFPAY ==
[2024-03-29 18:07] LABS: ALT (SGPT) 22 U/L (0-50); AST (SGOT) 38 U/L (17-59); Albumin 4.3 g/dl (3.5-5.0); Alkaline Phosphatase 74 U/L (38-126); Blood Urea Nitrogen 28 mg/dl (9-20); Calcium 9.5 mg/dl (8.4-10.2); Carbon Dioxide 31 mmol/L (22-30); Chloride 97 mmol/L (98-107); Glucose 100 mg/dl (70-99); Potassium 5.5 mmol/L (3.5-5.1); Sodium 136 mmol/L (135-145); Total Bilirubin 0.5 mg/dl (0.2-1.3); Total Protein 7.4 g/dl (6.3-8.2); eGFR 56.93
== END ==
LOC: REG 17:07
PROVIDERS: ATTENDING PHYSICIAN Specialist; FAMILY PHYSICIAN Physician Assistant
DX: C67.9 Malignant neoplasm of bladder, unspecified (principal)
CPT/HCPCS: 36415; 80053

== ENCOUNTER → 2024-04-05 12:21 | Outpatient (REF) | payer MEDICARE, BC, SELFPAY | LOC: RAD 12:21 | PROVIDERS: ATTENDING PHYSICIAN Specialist; FAMILY PHYSICIAN Physician Assistant | DX: C67.9 Malignant neoplasm of bladder, unspecified (principal) | CPT/HCPCS: 74178; Q9967 ==

== ENCOUNTER → 2024-04-17 17:29 | Outpatient (REF) | payer MEDICARE, BC, SELFPAY | LOC: CLAB 17:29 | PROVIDERS: ATTENDING PHYSICIAN Specialist | DX: C67.0 Malignant neoplasm of trigone of bladder (principal) | CPT/HCPCS: 88112 ==

== ENCOUNTER → 2024-07-04 08:59 | Outpatient (REF) | payer MEDICARE, BC, SELFPAY | LOC: RAD 08:59 | PROVIDERS: ATTENDING PHYSICIAN Surgery Vascular Surgery | DX: I71.43 Infrarenal abdominal aortic aneurysm, without rupture (principal) | CPT/HCPCS: 76770; 93922; 93925 ==

== ENCOUNTER → 2024-10-10 15:53 | Outpatient (REF) | payer MEDICARE, BC, SELFPAY | LOC: CLAB 15:53 | PROVIDERS: ATTENDING PHYSICIAN Specialist | DX: C67.0 Malignant neoplasm of trigone of bladder (principal) | CPT/HCPCS: 88112 ==

== ENCOUNTER 2024-11-16 20:27 | Emergency (ER) | payer MEDICARE, BC, SELFPAY ==
[2024-11-16 20:30] VITALS: BP 133/67
[2024-11-16 21:34] VITALS: BMI 23.4
--- NOTE | 2024-11-16 21:42 | ED.GENMED ---
History of Present Illness
General
Chief Complaint: Fall
Source: patient
Exam Limitations: none
Time Seen by Provider: 11/16/24 21:17
Nursing documentation reviewed up to this point in time: agreed with
History of Present Illness
History of Present Illness:
The patient is a very pleasant 79-year-old man who reports that he tripped and fell over on even pavement while walking from the side of his house to his driveway. Patient reports the incident occurred around 7:00 this evening. Patient reports he
fell on the right side of his face and head. He was able to get up after the fall and there was no loss of consciousness. Due to him being on a blood thinner, he came to the ED out of precaution. He denies any headache, nausea, vomiting. Patient
reports soreness and bruising along his right cheek area. He denies any loose teeth. He denies any inability to close his jaw or open his jaw. He denies neck pain, back pain, chest pain and abdominal pain. Patient denies dizziness. He denies
vision changes
Past History
Past History
ED Past Medical History: Arrthythmia
ED Past Surgical History: Tonsilectomy and Other (Hernia repair)
Social History
Tobacco: Smoker
Alcohol: Other
Drug: None
Personal: Single
Living: with family
Employment: Retired
Family History
Family History: Other (No significant)
Review of Systems
Review of Systems
Allergies reviewed?: Yes
All Other Systems: ROS reviewed and negative except as documented in HPI and ROS
Constitutional: Reports no symptoms
EENT: Reports other (Right cheek soreness and bruising)
Respiratory: Reports no symptoms
Cardiac: Reports no symptoms
ABD/GI: Reports no symptoms
: Reports no symptoms
Musculoskeletal: Reports no symptoms
Skin: Reports no symptoms
Neurological: Reports no symptoms
Endocrine: Reports no symptoms
Psychiatric: Reports no symptoms
Phy Exam
Physical Exam
Physical Exam:
Physical Exam
General: no apparent distress, not acutely ill. Smiling, conversational. Mild right temporal scalp soft tissue tenderness without obvious hematoma
Neck: supple. Nontender
Heart: No chest wall tenderness
Lungs: no acute respiratory distress. clear bilaterally. No vertebral spine tenderness
Abdomen: Soft, nontender
Neuro: alert and orientedx3. no focal neurological deficits. Extraocular muscles intact. 5 out of 5 strength in all extremities without drift
Skin: Ecchymotic right upper cheek area
Psychiatric: well kept. interactive and cooperative
Extremities: Nontender upper and lower extremities. Pelvis and hips nontender
Course
Orders/Labs/Results
Orders:
Orders
11/16/24 20:33
CT Head W/o Iv Contrast Urgent
Comment:
Reason For Exam: fall +thinners
Vital Signs
Initial and Last Documented VS:
Initial Vital Signs
Temp Pulse Resp BP Pulse Ox
98.5 F 70 20 133/67 94
11/16/24 20:30 11/16/24 20:30 11/16/24 20:30 11/16/24 20:30 11/16/24 20:30
Last Documented Vital Signs
Temp Pulse Resp BP Pulse Ox
98.5 F 70 20 133/67 94
11/16/24 20:30 11/16/24 20:30 11/16/24 20:30 11/16/24 20:30 11/16/24 21:42
MDM/Problems Addressed
Differential Diagnosis Includes:
Subdural hematoma, subarachnoid hemorrhage, right facial fracture
MDM/Problems Addressed:
Patient complains after a trip and fall with acute right facial pain and bruising
Chronic conditions affecting care:
Given patient has a history of A-fib and is on Eliquis, he is an increased risk of bleeding in the brain after hitting his head
Acute Exacerbation and/or Progression of Chronic Illness:
Patient's blood pressure slightly elevated but not in a concerning range
Acute Exacerbation and/or Progression of Chronic Illness: HTN
*Pulse Oximetry
SaO2: 94
Oxygen Mode of Delivery: Room air
Patient hypoxic: no
Comment: 94% on room air
*EKG
Interpreted by ED Provider?: NA
*Motorcycle [employer]er Interpretation
Rate: normal
Interpretation: normal
Rhythm: sinus
*Critical Care Note
Total Time (30-74mins, 75-104mins- exclusive of procedures): Not Applicable
Data Reviewed
Source: patient
Patient Management
Social determinants of health affecting care: Living situation and Strong social support
Escalation/DeEscalation of care consider admission/obs:
Patient looks extremely well and comfortable. He denies headache, vision changes, dizziness, nausea and vomiting. CT head is negative. He reports he lives with family and will return with any severe headache or vomiting.
Patient able to fully open and close jaw and bite down without any significant discomfort, therefore, it is doubtful he has a jaw fracture. He has no bony tenderness of face
ED Attending Note
-
Portions of this chart may have been created with voice recognition software.� Occasional wrong word or��sound alike� substitutions may have occurred due to the inherent limitations of voice recognition software.
Discharge Plan
Departure
Patient Disposition: Home (Routine Discharge)
Date of Disposition: 11/16/24
Time of Disposition: 22:02
Patient with high blood pressure during this ER visit?: Yes
Condition: Good
Covid-19: Not Applicable
Discharge Problem:
right facial contusion, Closed head injury, Fall from other slipping, tripping, or stumbling
Instructions: Head Injury in Adults (DC), Contusion (DC)
Prescriptions:
No Action
aspirin 81 mg Tablet,Delayed Release (Dr/Ec)
81 mg PO DAILY Qty: 0
Eliquis 5 mg Tablet
5 mg PO BID Qty: 120 0RF
phenazopyridine 95 mg Tablet
1 mg PO BID
acetaminophen [Tylenol] 325 mg Capsule
325 mg PO ONCE PRN (Reason: pain)
Tobradex ST 0.3-0.05 % Drops,Suspension
1 drp OPHTHALMIC (EYE) Q6H
Medical Marijuana
1 dose inhalation HS
nitrofurantoin monohyd/m-cryst 100 mg Capsule
100 mg PO BID 4 Days Qty: 8 0RF
Referrals:
Patsy Kate PA-C [Family Provider, Internal Medicine]
Activity Restrictions/Additional Instructions:
Take 1000 mg of Tylenol/acetaminophen every 4-6 hours for pain. Return with any severe headache or vomiting.
Interventions
Interventions:
*Risk Screen - Suicide Last Done: 11/16/24 20:30
*General Assessment Last Done: 11/16/24 20:30
*Neglect/Abuse Screening Last Done: 11/16/24 20:30
ED-Musculoskeletal Assessment Last Done: 11/16/24 21:35
ED- Neurological Assessment Last Done: 11/16/24 21:35
ED-Skin Assessment Last Done: 11/16/24 21:35
Discharge Date and Time
Print Language: SLOVAK
[2024-11-16 22:31] VITALS: BP 137/84
== END 2024-11-16 22:33 | disposition home or self-care (01) ==
LOC: EMR 20:27
PROVIDERS: EMERGENCY PHYSICIAN Emergency Medicine; FAMILY PHYSICIAN Physician Assistant
DX: S00.83XA Contusion of other part of head, initial encounter (principal); W01.0XXA Fall on same level from slipping, tripping and stumbling without subsequent striking against object, initial encounter; F17.200 Nicotine dependence, unspecified, uncomplicated; I48.91 Unspecified atrial fibrillation; Z79.01 Long term (current) use of anticoagulants
CPT/HCPCS: 99284; 70450

== ENCOUNTER → 2024-12-20 09:53 | Outpatient (REF) | payer MEDICARE, BC, SELFPAY ==
[2024-12-20 11:39] LABS: Hematocrit 40.2 % (39.0-52.0); Hemoglobin 13.3 g/dL (13.0-18.0); Mean Corp Hgb Conc. 33.1 g/dL (33.0-37.0); Mean Corpuscular Volume 91.8 fL (80.0-94.0); Nucleated Red Blood Cells % 0 % (-); Platelet Count 353 10^3/uL (130-400); Red Cell Dist. Width 14.3 % (11.5-14.5)
[2024-12-20 12:48] LABS: ALT (SGPT) 42 U/L (0-50); AST (SGOT) 55 U/L (17-59); Albumin 4.4 g/dl (3.5-5.0); Alkaline Phosphatase 101 U/L (38-126); Blood Urea Nitrogen 21 mg/dl (9-20); Calcium 9.8 mg/dl (8.4-10.2); Carbon Dioxide 27 mmol/L (22-30); Chloride 106 mmol/L (98-107); Glucose 88 mg/dl (70-99); HDL Cholesterol 66 mg/dl; LDL Cholesterol, Calculated 98 mg/dl; Potassium 5.8 mmol/L (3.5-5.1); Sodium 138 mmol/L (135-145); Total Protein 7.4 g/dl (6.3-8.2); Very Low Density Lipoprotein 21 mg/dl (0-30); eGFR > 60.00
[2024-12-20 12:50] LABS: PSA, Total - Screen 2.13 ng/ml (0.0-4.0)
== END ==
LOC: REG 09:53
PROVIDERS: ATTENDING PHYSICIAN Physician Assistant
DX: Z00.00 Encounter for general adult medical examination without abnormal findings (principal); C67.0 Malignant neoplasm of trigone of bladder; I73.9 Peripheral vascular disease, unspecified; Z87.891 Personal history of nicotine dependence; E87.5 Hyperkalemia; Z12.5 Encounter for screening for malignant neoplasm of prostate; I25.10 Atherosclerotic heart disease of native coronary artery without angina pectoris
CPT/HCPCS: 36415; 80053; 80061; 85025; G0103

== ENCOUNTER → 2025-01-08 13:03 | Outpatient (REF) | payer MEDICARE, BC, SELFPAY | LOC: RAD 13:03 | PROVIDERS: ATTENDING PHYSICIAN Surgery Vascular Surgery; FAMILY PHYSICIAN Physician Assistant | DX: I73.9 Peripheral vascular disease, unspecified (principal) | CPT/HCPCS: 93922; 93925 ==

== ENCOUNTER → 2025-01-16 14:01 | Outpatient (REF) | payer MEDICARE, BC, SELFPAY ==
[2025-01-16 18:44] LABS: Urine Character Clear (Clear)
[2025-01-16 18:54] LABS: Urine Red Blood Cell 0-2 /HPF (0-2)
== END ==
LOC: CLAB 14:01
PROVIDERS: ATTENDING PHYSICIAN Specialist
DX: C67.0 Malignant neoplasm of trigone of bladder (principal)
CPT/HCPCS: 81003; 81015; 88112